=== PATIENT | female | born 1995 | race Caucasian/White ===

== ENCOUNTER 2020-08-01 01:12 | Outpatient (REF) | payer OTHER, SELFPAY ==
[2020-08-01 01:52] LABS: SARS COV2 PCR INHOUSE NEGATIVE (Negative)
== END 2020-08-01 01:13 | disposition home or self-care (01) ==
LOC: HO.LAB 01:12
PROVIDERS: Visit Provider Internal Medicine
DX: Z20.828 Contact with and (suspected) exposure to other viral communicable diseases (principal)
CPT/HCPCS: U0003

== ENCOUNTER 2020-10-20 15:12 | Outpatient (REF) | payer OTHER, SELFPAY ==
[2020-10-20 15:56] LABS: COVID-19 Test Negative (Negative); IDNOW Serial# 55D5AD1C
== END 2020-10-20 15:13 | disposition home or self-care (01) ==
LOC: HO.LAB 15:12
PROVIDERS: Visit Provider Internal Medicine
DX: Z20.822 Contact with and (suspected) exposure to COVID-19 (principal)
CPT/HCPCS: 36415; 87635; C9803

== ENCOUNTER 2020-10-22 16:20 | Outpatient (REF) | payer OTHER, SELFPAY ==
[2020-10-22 18:48] LABS: COVID-19 Test Negative (Negative)
== END 2020-10-22 16:21 | disposition home or self-care (01) ==
LOC: HO.EMPCOV 16:20
PROVIDERS: Visit Provider Internal Medicine
DX: Z20.822 Contact with and (suspected) exposure to COVID-19 (principal)
CPT/HCPCS: 36415; 87635

== ENCOUNTER 2020-11-11 12:00 | Outpatient (REF) | payer OTHER, SELFPAY ==
[2020-11-12 03:43] LABS: Syphilis Screen Nonreactive (Nonreactive)
[2020-11-12 03:55] LABS: HBsAGNum1 0.19 S/CO (0.00-0.99); Hepatitis B Surface Antigen Negative (Negative)
[2020-11-12 04:09] LABS: HBS Num1 1.75 mIU/mL (0-7.99); HBc Num1 0.12 S/CO (0.00-0.79); HIV AB/AG Nonreactive (Nonreactive); HIV Num 1 0.09 S/CO (0.00-0.99); Hepatitis B Core Antibody Nonreactive (Nonreactive); ~Hepatitis B Surface Antibody NONREACTIVE (Nonreactive); ~Hepatitis C Antibody Nonreactive (Nonreactive)
[2020-11-12 14:11] LABS: C. trachomatis RNA TMA NOT DETECTED (NOT DETECTED); N. gonorrhoeae RNA TMA NOT DETECTED (NOT DETECTED)
[2020-11-16 16:42] LABS: HSV 1 IgM IFA Negative (Negative); HSV 2 IgM IFA Negative (Negative)
== END 2020-11-11 12:01 | disposition home or self-care (01) ==
LOC: HO.WFDLDS 12:00
PROVIDERS: Visit Provider Family Medicine
DX: Z11.4 Encounter for screening for human immunodeficiency virus [HIV] (principal); Z11.3 Encounter for screening for infections with a predominantly sexual mode of transmission; Z01.84 Encounter for antibody response examination
CPT/HCPCS: 36415; 86695; 86696; 86704; 86706; 86780; 86803; 87340; 87389; 87491; 87591

== ENCOUNTER 2021-05-09 09:14 | Outpatient (REF) | payer OTHER, SELFPAY ==
[2021-05-09 10:06] LABS: Glucose Urine UA NEG (NEG); Leukocyte Esterase Urine TRACE (NEG); UACC Culture Trigger YES; Urine Blood 2+ (NEG); Urine Ketones 5 MG/DL (NEG); Urine Protein 2+ MG/DL (NEG-TRACE)
[2021-05-09 10:08] LABS: Appearance Urine CLOUDY; Color Urine DARK YELLOW
[2021-05-09 10:33] LABS: RBC Urine 0-2 /HPF (0); WBC Urine 30-49 /HPF (0-4)
[2021-05-09 10:34] LABS: Amorphous Sediment Urine TRACE /LPF; Bacteria Urine 1+ /LPF; Mucus Urine TRACE /LPF; Squamous Epithelial Cell Urine 1+ /LPF
== END 2021-05-09 09:15 | disposition home or self-care (01) ==
LOC: HO.LAB 09:14
PROVIDERS: PCP Family Medicine; Visit Provider Nurse Practitioner Family
DX: R30.0 Dysuria (principal)
CPT/HCPCS: 81001; 87086; 87088; 87186

== ENCOUNTER 2021-09-22 00:14 | Outpatient (REF) | payer OTHER, SELFPAY ==
[2021-09-22 00:41] LABS: COVID-19 Test Negative (Negative)
== END 2021-09-22 00:15 | disposition home or self-care (01) ==
LOC: HO.LAB 00:14
PROVIDERS: Visit Provider Internal Medicine
DX: Z20.822 Contact with and (suspected) exposure to COVID-19 (principal)
CPT/HCPCS: 36415; 87635

== ENCOUNTER 2021-09-27 19:22 | Outpatient (REF) | payer OTHER, SELFPAY ==
[2021-09-27 20:08] LABS: Influenza A PCR NEGATIVE (Negative); Influenza B PCR NEGATIVE (Negative); Resp Syncy Virus RNA Qual PCR NEGATIVE (Negative); SARS COV2 PCR INHOUSE NEGATIVE (Negative)
== END 2021-09-27 19:23 | disposition home or self-care (01) ==
LOC: HO.LNP 19:22
PROVIDERS: Visit Provider Family Medicine
DX: Z20.822 Contact with and (suspected) exposure to COVID-19 (principal); B34.9 Viral infection, unspecified
CPT/HCPCS: 0241U

== ENCOUNTER 2022-03-29 09:14 | Outpatient (REF) | payer OTHER, SELFPAY ==
[2022-03-29 11:30] LABS: Hematocrit 40.4 % (37.0-47.0); Hemoglobin 13.7 g/dl (12.0-16.0); Mean Corpuscular HGB Conc 33.9 g/dl (31.0-35.0); Mean Corpuscular Hemoglobin 32.1 pg (27.0-33.0); Mean Corpuscular Volume 94.6 fL (80.0-98.0); Mean Platelet Volume 12.2 fL (9.4-12.3); Platelet Count 179 X10*3/uL (160-400); Red Blood Count 4.27 X10*6/uL (4.20-5.50); Red Cell Distribution Width 11.7 % (11.0-16.0)
[2022-03-29 11:32] LABS: Alanine Aminotransferase 9 U/L (0-31); Albumin Level 4.6 g/dL (3.5-5.0); Alkaline Phosphatase 73 U/L (39-117); Anion Gap 14 (12-20); Aspartate Amino Transferase 13 U/L (5-31); Bilirubin Total 0.7 mg/dL (0.0-1.0); Blood Urea Nitrogen 11 mg/dL (9-16); Calcium 9.3 mg/dL (8.4-10.2); Carbon Dioxide 25 mmol/L (22-29); Chloride 106 mmol/L (96-108); Cholesterol 167 mg/dL; Estimated Glomerular Filt Rate > 60; Glucose Fasting 88 mg/dL (60-99); HDL Cholesterol 47 mg/dL; LDL Cholesterol Calculated 106 mg/dl; Potassium 3.8 mmol/L (3.3-5.1); Sodium 141 mmol/L (135-145); Total Protein 7.6 g/dL (6.5-8.0); Triglycerides 70 mg/dL
[2022-03-29 11:54] LABS: TSH reflex Free T4 1.85 uIU/mL (0.32-4.0)
[2022-03-29 12:02] LABS: Estimated Average Glucose 97 mg/dL
== END 2022-03-29 09:15 | disposition home or self-care (01) ==
LOC: HO.WFDLDS 09:14
PROVIDERS: Family Medicine; Visit Provider Hospitalist
DX: Z00.00 Encounter for general adult medical examination without abnormal findings (principal); R73.01 Impaired fasting glucose
CPT/HCPCS: 36415; 80053; 80061; 83036; 84443; 85027

== ENCOUNTER 2022-08-13 16:24 | Emergency (ER) | payer SELFPAY ==
[2022-08-13 16:37] VITALS: PULSE 90; RESP 18; TEMP 36.9; O2SAT 99; BMI 19.7
--- NOTE | 2022-08-13 17:53 | ED.WOUNDLAC ---
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 Tetanus up-to-date. Reports mild paresthesias. Denies numbness, weakness, decreased ROM, fever, crush injury Onset (ago): hour(s) Related Data Home Medications Medication Instructions Recorded Confirmed albuterol sulfate 2.5 mg/3 mL mg inhalation 07/28/20 03/29/22 (0.083 %) solution for nebulization albuterol sulfate 90 mcg/actuation inhalation 07/28/20 03/29/22 aerosol inhaler Previous Rx's Medication Instructions Recorded norelgestromin 150 mcg-e.estradiol 1 patch transdermal QWEEK #9 06/07/21 35 mcg/24 hr weekly transderm patches patch (Xulane) trazodone 50 mg tablet 50 mg PO TID PRN sleep and anxiety 03/30/22 #90 tabs Allergies Allergy/AdvReac Type Severity Reaction Status Date / Time penicillin G Allergy Mild rash Verified 03/29/22 08:32 Penicillins [PCN] Allergy Mild RASH Verified 03/29/22 08:32 Review of Systems Review of Systems: Constitutional: No Fever, No Chills ENT/Mouth: No Ear Pain, No Nasal Congestion, No sore throat, No Rhinorrhea, No Swallowing Difficulty Cardiovascular: No Chest Pain, No SOB Respiratory: No Cough, No Sputum, No Wheezing Gastrointestinal: No Nausea, No Vomiting, No Diarrhea, No Constipation, No Abdominal pain Genitourinary: No Dysuria, No Urinary Frequency, No Hematuria, No Flank Pain Musculoskeletal: No joint pain, No Myalgias, No Joint Swelling Skin: + Skin Lesions, No rash Neuro: No Weakness, No Numbness, + Paresthesias Yes all other systems are reviewed and are negative Constitutional: Constitutional: Reports as per HPI Neurologic: Denies Sensory deficit (Neuro) [facility] Past Medical History Attestation statement: The following information was validated with the patient. Surgical History No pertinent past surgical history Family History Family History Father Medical history unknown Mother H/O thyroidectomy Social History Social History Housing: Apartment Patient Tobacco Use Status: Never used Tobacco e-Cigarette/Vaping Use: Never Used Second Hand Smoke Exposure: No Advance Directives: No Advance Directives Information Provided: No service: No Current occupational status: employed Current occupation: [employer] [place] Cognitive needs: No Hearing needs: No Vision needs: No Physical Exam Vital Signs: Vital Signs: Last Vital Signs Temp 98.4 F 08/13/22 16:37 Pulse 90 08/13/22 16:37 Resp 18 08/13/22 16:37 Pulse Ox 99 08/13/22 16:37 O2 Del Method 08/13/22 16:37 BMI result Body Mass Index 19.7 Const: General: cooperative, healthy appearing and no acute distress Orientation/consciousness: patient oriented x3 Limitations: no limitations HEENT: Head: Yes normal to inspection and Yes atraumatic Ears: hearing grossly normal bilaterally General nose exam: Normal external nose present Face and sinus: Yes normal facial exam Eyes: General: appearance normal, both eyes and all related structures EOM: EOMs intact bilaterally Neck: Neck: Yes normal visual inspection and Yes no meningeal signs Resp: Effort & Inspection: normal respiratory effort and no respiratory distress Cardio: Rate: regular rate Heart sounds: S1 normal heart sound present and S2 normal heart sound present Peripheral pulses: radial pulses present and ulnar radial pulses present Skin: Other: +3.5 deep irregular laceration noted to palmar aspect of right index finger between MCP and PIP. Subcu tissue visible. No underlying structures visible. Sensation intact to light touch. Full range of motion intact to digit. [id number] opposition intact Rashes: no rashes Neuro: General: patient oriented x3, tone normal and no meningeal signs Gait exam (Neuro): Normal gait present Sensory Exam: No Sensory deficit (Neuro) Extrem: General: Yes normal to inspection Medications Administered Discontinued Medications Generic Name Dose Route Start Last Admin Trade Name Freq PRN Reason Stop Dose Admin Lidocaine HCl 5 ml 08/13/22 17:59 08/13/22 18:46 Lidocaine Hcl 1 % Mpf 5 Ml Vial INFILTRATI 08/13/22 18:00 5 ml ONCE ONE Administration MDM - Wound/Laceration MDM Narrative Medical decision making narrative: 27-year-old female with no significant past medical history presenting to the ED complaining of laceration to right index finger s/p using 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 On exam vital signs stable, NAD, nontoxic appearing, physical exam as above with 3.5 cm laceration to palmar aspect of right 2nd digit. No evidence of infection. Low suspicion for rupture of underlying structures. Full range of motion intact. Neurovascular intact. Low suspicion for fracture Plan: Repair wound Differential Diagnosis Differential diagnosis: Likely laceration Medical Records Attestation: I reviewed the patient's medical records. Lab Data Attestation: I reviewed the patient's lab results. Procedures Laceration Laceration 1: Site: hand (Index finger) Side (If applicable): right Size (cm): 3.5 Description: irregular Depth: simple, single layer Local Anesthetic: lidocaine 1% Amount of anesthesia used (mL): 3 Pre-repair: wound explored and irrigated extensively Skin layer closed with: nylon Size (cm): 5-0 Number of sutures: 11 Technique: simple, interrupted Discharge Plan Discharge Clinical Impression: Finger laceration Patient Disposition: Home, Self-Care Instructions: Finger Laceration (ED) Additional Instructions: Your wounds were repaired today in the emergency department. Keep dry and clean. You need to return to any emergency department or urgent care in 7-10 days for suture removal Apply bacitracin and or Neosporin daily Once sutures are removed apply anti scar cream like Mederma If area begins look infected, is red, there is drainage, streaking, or you have fever please return to the emergency department Prescriptions: No Action Xulane 150-35 mcg/24 hr patch weekly 1 patch transdermal QWEEK Qty: 9 0RF trazodone 50 mg tablet 50 mg PO TID PRN (Reason: sleep and anxiety) Qty: 90 0RF albuterol sulfate 90 mcg/actuation HFA aerosol inhaler inhalation albuterol sulfate 2.5 mg /3 mL (0.083 %) solution for nebulization inhalation Referrals: Meredith Mantilla, JD [Primary Care Provider] - 1 week (For suture removal)
[2022-08-13] MEDS: Lidocaine HCl 1 % MPF 5 ML VIAL INFILTRATI (18:46)
== END 2022-08-13 19:51 | disposition home or self-care (01) ==
PROVIDERS: Emergency Provider Emergency Medicine; PCP Hospitalist
DX: S61.210A Laceration without foreign body of right index finger without damage to nail, initial encounter (principal); W26.8XXA Contact with other sharp object(s), not elsewhere classified, initial encounter; Y93.9 Activity, unspecified; Y92.009 Unspecified place in unspecified non-institutional (private) residence as the place of occurrence of the external cause; Y99.9 Unspecified external cause status
CPT/HCPCS: 12002; 99282; 99283

== ENCOUNTER 2024-03-12 08:02 | Outpatient (AMB) | payer OTHER, SELFPAY ==
--- NOTE | 2024-03-12 08:12 | MHC.PC.OV ---
Vital Signs 03/12/24 08:13 Height 5 ft 3 in Weight 104 lb BMI 18.4 BP 108/64 Blood Pressure Location Rt brachial Position Sitting Respiration 14 Pulse 77 Pulse Source Pulse Oximeter Temp 97.8 F Temp Source Temporal Artery Scan Pulse Oximetry (%) 99 Oxygen Delivery Method Room Air Intake Visit Reasons: Xfer care Meredith/PE Intake Note: Patient states that she is moving to [place] and is going to work in healthcare and would like labs and is questioning if you can do a swab for yeast infection. Track Helper Required: No Accompanied by: Self / Same As Patient Allergies penicillin G Allergy (Mild, Verified 03/12/24 08:28) rash Penicillins [PCN] Allergy (Mild, Verified 03/12/24 08:28) RASH trazodone Adverse Reaction (Severe, Verified 03/12/24 08:28) Vomiting Medication List - Last Reconciled 03/12/24 by Violet Mendoza, [facility] albuterol sulfate 90 mcg/actuation inhalation Tobacco use date assessed: 03/12/24 Dental Screening Dental Screen Date: 03/12/24 Did you have a dental visit in the last 12 months?: No Did you have a dental problem in the last 6 months where you did not have access to dental care?: No Was dental information given to patient?: Patient has dentist HPI HPI Comments History of Present Illness Details 29 y/o F with acne, passive SI, asthma, MDD, ALYSHA Surgical Hx: R finger lac repair Social: Electronics Mechanic Health Maintenance: Pap overdue Specialists: Derm > did not see, as she was placed on waitlist Here today for CPE Old records and labs reviewed. Will be moving to start new job, as a [employer], to [place], [place] . Needs pre-employment screening. Due for Tdap. Will get today. Eyes - blurred vision, worse in R eye. thinks its from straining. will get eye exam when she moved Derm - referral for gen survellience. She will est care once moved. Nothing concerning at this time. Discussed mood screenings. Has situational anx and depression. not currently on meds. Denies SI, HI, self med. Will f/u with provider in [place]. vaginal discharge w/ odor. Regular periods. no concern for STD. wonders if bv or yeast. no at home tx. BV swab today. [facility] Medical History Screening for STD (sexually transmitted disease) Surgical History No pertinent past surgical history Family History Father Medical history unknown Mother H/O thyroidectomy Other Mental health disorder Substance abuse Social History Housing: Apartment Patient Tobacco Use Status: Never used Tobacco e-Cigarette/Vaping Use: Never Used Second Hand Smoke Exposure: No service: No Current occupational status: employed Current occupation: Electronics Mechanic Cognitive needs: No Hearing needs: No Vision needs: Yes Questionnaire PHQ-9 Over the last 2 weeks, how often have you been bothered by any of the following problems? 1. Little interest or pleasure in doing things: not at all 2. Feeling down, depressed, or hopeless: several days 3. Trouble falling or staying asleep, or sleeping too much: several days 4. Feeling tired or having little energy: several days 5. Poor appetite or overeating: not at all 6. Feeling bad about yourself - or that you are a failure or have let yourself or your family down: several days 7. Trouble concentrating on things, such as reading the newspaper or watching television: not at all 8. Moving or speaking so slowly that other people could have noticed. Or the opposite - being so fidgety or restless that you have been moving around a lot more than usual: not at all 9. Thoughts that you would be better off or of hurting yourself in some way: not at all Total score: 4 Depression Screening Interpretation: Negative Depression Screening Done: Yes 43109 - PHQ-9 Billing: Yes Source: Developed by Drs. Puma Diaz, Georgie Sanabria, Marlon Mullen and colleagues, with an educational keenan from [employer]. Thrive Questionnaire Date Thrive assessed: 03/12/24 I am a: Patient What is your living situation today?: I have a steady place to live Within the past 12 months, did the food you bought not last and you didn't have the money to get more?: Never true Within the past 12 months, did you worry whether your food would run out before you got money to buy more?: Never true Do you have trouble paying for medicines?: No Do you have trouble getting transportation to medical appointments?: No Do you have trouble paying your heating and electricity bill?: No Do you have trouble taking care of your child, family member or friend?: No Do you have trouble with day-to-day activities such as bathing, preparing meals, shopping, managing finances, etc.?: No Are you currently unemployed and looking for a job?: No Are you interested in more education?: No Please select the resources that you would like help with: None Currently or been in a relationship where the following occur: no concerns reported THRIVE Score: 0 AUDIT C Alcohol Use Questionnaire (AUDIT-C) 1. How often do you have a drink containing alcohol?: Monthly or less 2. How many drinks containing alcohol do you have on a typical day when you are drinking?: 1 or 2 3. How often do you have six or more drinks on one occasion?: Never Total Score: 1 Score Reviewed/Action Taken: Yes ALYSHA-7 AMB Questionnaire ALYSHA-7 Date ALYSHA - 7 assessed: 03/12/24 Feeling nervous, anxious, or on edge: 2 = More than half the days Not being able to stop or control worryin = More than half the days Worrying too much about different things: 2 = More than half the days Trouble relaxin = More than half the days Being so restless that it is hard to sit still: 2 = More than half the days Becoming easily annoyed or irritable: 1 = Several days Feeling afraid as if something awful might happen: 1 = Several days Total ALYSHA-7 score (0-4 normal; 5-9 mild; 10-14 moderate; 15-21 severe): 12 Source: Developed by Drs. Puma Diaz, Georgie Sanabria, Marlon Mullen and colleagues, with an educational keenan from [employer]. ALYSHA-7 Assessment Billing ALYSHA-7 Assessment Tool: ALYSHA-7 Assessment 65880 ACT Questionnaire In the past 4 weeks, how much of the time did your asthma keep you from getting as much done at work, school or at home?: A little of the time During the past 4 weeks, how often have you had shortness of breath?: 1-2 times a week During the past 4 weeks, how often did your asthma symptoms wake you up at night or earlier than usual in the morning?: Not at all During the past 4 weeks, how often have you had to use your rescue inhaler or nebulizer medication?: 1-2 times a week How would you rate your asthma control during the past 4 weeks?: Well controlled ACT Interpretation: Negative Score: 19 Review of Systems Const Details: Constitutional: Denies fever. Skin: Denies rash. Eye: Denies eye pain. ENMT: Denies sore throat and nasal congestion. Respiratory: Denies shortness of breath and cough. Gastrointestinal: Denies nausea, vomiting or abdominal pain. Cardiovascular: Denies chest pain and syncope. Genitourinary: Denies dysuria. Musculoskeletal: Denies back pain and extremity pain. Neurologic: Denies headaches, confusion, and weakness. Psychiatric: Denies suicidal thoughts and substance abuse. Allergy/ Immunologic: Denies impaired immunity. Physical exam (Primary Care) Vital Signs: Last Vital Signs Temp 97.8 F 03/12/24 08:13 Pulse 77 03/12/24 08:13 Resp 14 03/12/24 08:13 BP 108/64 03/12/24 08:13 Pulse Ox 99 03/12/24 08:13 Oxygen Delivery Method Room Air 03/12/24 08:13 BMI result Body Mass Index 18.4 BMI Assessment/Plan discussion: Low BMI Low, Plan discussed: lifestyle Tobacco/Smoking Status: Tobacco use Status Tobacco use date assessed 03/12/24 03/12/24 08:24 Patient Tobacco Use Status Never used Tobacco 03/12/24 08:24 e-Cigarette/Vaping Use Never Used 03/12/24 08:24 PHQ-9: PHQ-9 Score PHQ-9: Total score 4 03/12/24 09:05 Depression Screening Interpretation: Negative Thrive Assessment: Date of Thrive Assessment Date Thrive assessed 03/12/24 03/12/24 08:24 Currently or been in a relationship where the following occur: no concerns reported Const Other: General: Well developed, well nourished, in no acute distress. Appears stated age. Head: Normocephalic, atraumatic. Eyes: Pupils are equal, round and reactive to light and accommodation. Conjunctivae are clear. Vision grossly normal. Ears: TMs clear AU, EACS WNL Nose: Patent, without discharge. Mouth: There are no ulcers or lesions noted. No inflammation, no post nasal drip, no plaques nor exudates. Neck: Supple, no adenopathy or thyromegaly. Lungs: Clear to auscultation bilaterally. No rales, rhonchi or wheeze noted. Good air flow in all de leon. Heart: Regular rate and rhythm. No murmurs, click, rubs or gallops are noted. Abdomen: Bowel sounds present in all quadrants. The abdomen is soft, nontender, with no masses or organomegaly noted. No hernias are noted. Musculoskeletal: Joints are nontender, without swelling, redness, or effusions. Range of motion is observed to be normal. Pulses: Peripheral pulses are equal and palpable bilaterally. Extremities: No clubbing, cyanosis nor edema is noted. Neurologic: Gait and station normal. Cranial Nerves 2-12 intact. Motor strength grossly symmetrical and intact. No sensory loss. Balance normal. Skin: No rashes, ulcers, or lesions noted. Turgor is good. Skin color is good. Hair and nails are without abnormalities. Psych: Normal eye contact, affect and mood appropriate, and normal interactions. Patient is alert and appropriate to context. Immunizations Boostrix Tdap 2.5 Lf unit-8 mcg-5 Lf/0.5 mL intramuscular syringe Performing Provider: MALIA Tran Performing Location: [facility] Administered by: BRAN Michaels on 03/12/24 09:07 Dose Route Admin Location Dispensed Lot Number Expiration Date [facility] Floor Molder 0.5 mL IM Left Deltoid 0.5 mL [id number] 05/09/26 [id number] Simple Tithe VIS Given Date VIS Provided VIS Publication Date 03/12/24 Single Vaccine 21 Eligibility Eligibility Date Funding Source Not [facility] Eligible 03/12/24 Private Assessment and Plan Assessment & Plan (1) Encounter for general adult medical examination with abnormal findings: Code(s): Z00.01 - Encounter for general adult medical examination with abnormal findings (2) Vaginal discharge: Code(s): N89.8 - Other specified noninflammatory disorders of vagina (3) Laboratory exam ordered as part of routine general medical examination: Code(s): Z00.00 - Encounter for general adult medical examination without abnormal findings (4) MDD (major depressive disorder), recurrent episode: Comment: no meds at this time, no counseling will work on est care when she moves Code(s): F33.9 - Major depressive disorder, recurrent, unspecified Qualifiers: Major depression episode severity: mild Qualified Code(s): F33.0 - Major depressive disorder, recurrent, mild (5) ALYSHA (generalized anxiety disorder): Comment: no meds at this time, no counseling will work on est care when she moves Code(s): F41.1 - Generalized anxiety disorder (6) Mild intermittent asthma: Comment: on PRN KJ only w/ well controlled sx REfill sent Code(s): J45.20 - Mild intermittent asthma, uncomplicated Qualifiers: Asthma complication type: uncomplicated Qualified Code(s): J45.20 - Mild intermittent asthma, uncomplicated Plan This note is constructed using voice recognition software. While every effort has been made to ensure accuracy in machine operator slitter technician, still errors may have been included Sometimes, these errors may affect the content or meaning of the given sentence . Total time spent caring for the patient today was 50 minutes. An additional 15 was spent addressing the problem(s) noted at todays visit. This includes time spent before the visit reviewing the chart, time spent during the visit, and time spent after the visit on documentation Orders: Orders Comprehensive [place]. Panel Fast Today Z00.00 - Encounter for general adult medical examination without abnormal findings IRON PROFILE Today Z00.00 - Encounter for general adult medical examination without abnormal findings Vitamin B12 and Folate Today Z00.00 - Encounter for general adult medical examination without abnormal findings Bacterial Vaginosis Panel Today N89.8 - Other specified noninflammatory disorders of vagina Hemoglobin A1c Today Z00.00 - Encounter for general adult medical examination without abnormal findings Lipid Panel Today Z00.00 - Encounter for general adult medical examination without abnormal findings Microalbumin, Random (w Creat) Today Z00.00 - Encounter for general adult medical examination without abnormal findings TSH reflex Free T4 Today Z00.00 - Encounter for general adult medical examination without abnormal findings Vitamin D 1,25 dihydroxy Today Z00.00 - Encounter for general adult medical examination without abnormal findings Hepatitis B Surface Antibody Today Z00.00 - Encounter for general adult medical examination without abnormal findings MMR IgG Measles Mumps Rubella Today Z00.00 - Encounter for general adult medical examination without abnormal findings T Spot TB Today Z00.00 - Encounter for general adult medical examination without abnormal findings Varicella IgG Antibody Today Z00.00 - Encounter for general adult medical examination without abnormal findings Complete Blood Count no Diff Today Z00.00 - Encounter for general adult medical examination without abnormal findings TDaP Immunization Today Z23 - Encounter for immunization Medications: Changed From albuterol sulfate 90 mcg/actuation inhalation To albuterol sulfate 90 mcg/actuation 2 puffs inhalation Q6H 8.5 grams 1RF Patient Instructions: Health screenings for women You should visit your health care provider from time to time, even if you are healthy. The purpose of these visits is to: Screen for medical issues Assess your risk for future medical problems Encourage a healthy lifestyle Update vaccinations and other preventive care services Help you get to know your provider in case of an illness Information Even if you feel fine, you should still see your provider for regular checkups. These visits can help you avoid problems in the future. For example, the only way to find out if you have high blood pressure is to have it checked regularly. High blood sugar and high cholesterol levels also may not have any symptoms in the early stages. A simple blood test can check for these conditions. There are specific times when you should see your provider or receive specific health screenings. The [place] Preventive Services Task Force publishes a list of recommended screenings. Below are screening guidelines for women ages 18 to 39. BLOOD PRESSURE SCREENING Your blood pressure should be checked at least once every 3 to 5 years if: Your blood pressure is in the normal range (top number less than 120 mm Hg and bottom number less than 80 mm Hg) You don't have risk factors for high blood pressure Ask your provider if you need your blood pressure checked more often if: The top number is 120 to 129 mm Hg or the bottom number is 70 to 79 mm Hg You have diabetes, heart disease, kidney problems, are overweight, or have certain other health conditions You have a first-degree relative with high blood pressure You are Black You had high blood pressure during a If the top number is 130 mm Hg or greater or the bottom number is 80 mm Hg or greater, this is considered stage 1 hypertension. Schedule an appointment with your provider to learn how you can reduce your blood pressure. Watch for blood pressure screenings in your area. Ask your provider if you can stop in to have your blood pressure checked. BREAST CANCER SCREENING Experts do not agree about the benefits of breast self-exams in finding breast cancer or saving lives. Talk to your provider about what is best for you. A screening mammogram is not recommended for most women under age 40. Your provider may discuss and recommend mammograms, MRI scans, or ultrasounds if you have an increased risk for breast cancer, such as: A mother or sister who had breast cancer at a young age (most often starting screening earlier than the age the close relative was diagnosed) You carry a high-risk genetic marker CERVICAL CANCER SCREENING Cervical cancer screening should start at age 21 years unless your provider advises otherwise. After the first test: Women ages 21 through 29 should have a Pap test every 3 years. Exoprts do not agree on whether HPV testing is recommended for this age group. Women ages 30 through 65 should be screened with either a Pap test every 3 years or the HPV test every 5 years or both tests every 5 years (called cotesting ). Women who have been treated for precancer (cervical dysplasia) should continue to have Pap tests for 20 years after treatment or until age 65, whichever is longer. If you have had your uterus and cervix removed (total hysterectomy), and you have not been diagnosed with cervical cancer or precancer (high grade cervical neoplasia), you do not need cervical cancer screening. CHOLESTEROL SCREENING Cholesterol screening should begin at: Age 45 for women with no known risk factors for coronary heart disease Age 20 for women with known risk factors for coronary heart disease Repeat cholesterol screening should take place: Every 5 years for women with normal cholesterol levels More often if changes occur in lifestyle (including weight gain and diet) More often if you have diabetes, heart disease, kidney problems, or certain other conditions DIABETES SCREENING You should be screened for diabetes starting at age 35 and then repeated every 3 years if you have no risk factors for diabetes. Screening may need to start earlier and be repeated more often if you have other risk factors for diabetes, such as: You have a first degree relative with diabetes. You are overweight or have obesity. You have high blood pressure, prediabetes, or a history of heart disease. Screening for diabetes should be done if you are planning to become and you are overweight and have other risk factors such as high blood pressure. DENTAL EXAM Go to the dentist once or twice every year for an exam and cleaning. Your dentist will evaluate if you need more frequent visits. EYE EXAM Have an eye exam every 5 to 10 years before age 40. If you have vision problems, have an eye exam every 2 years or more often if recommended by your provider. You should have an eye exam that includes an examination of your retina (back of your eye) at least every year if you have diabetes. IMMUNIZATIONS Commonly needed vaccines include: Flu shot: get one every year. COVID-19 vaccine: ask your provider what is best for you. Tetanus-diphtheria and acellular pertussis (Tdap) vaccine: have one at or after age 19 as one of your tetanus-diphtheria vaccines if you did not receive it as an adolescent. Tetanus-diphtheria: have a booster (or Tdap) every 10 years. Varicella vaccine: receive 2 doses if you never had chickenpox or the varicella vaccine. Hepatitis B vaccine: receive 2, 3, or 4 doses, depending on your exact circumstances. Measles, mumps, and rubella (MMR) vaccine: receive 1 to 2 doses if you are not already immune to MMR. Your provider can tell you if you are immune. Ask your provider about the human papillomavirus (HPV) vaccine if: You have not received the HPV vaccine in the past You have not completed the full vaccine series (you should catch up on this shot) Ask your provider if you should receive other immunizations if you have certain health problems that increase your risk for some diseases such as pneumonia. INFECTIOUS DISEASE SCREENING Women who are sexually active should be screened for chlamydia and gonorrhea up until age 25. Women 25 years and older should be screened for chlamydia and gonorrhea if at high risk. Screening for hepatitis C: All adults ages 18 to 79 should get a one-time test for hepatitis C. people should be screened at every . Screening for human immunodeficiency virus (HIV): All people ages 15 to 65 should get a one-time test for HIV. Depending on your lifestyle and medical history, you may also need to be screened for infections such as syphilis and HIV, as well as other infections. PHYSICAL EXAM All adults should visit their provider from time to time, even if they are healthy. The purpose of these visits is to: Screen for disease Assess your risk of future medical problems Encourage a healthy lifestyle Update your vaccinations and other preventive care services Maintain a relationship with a provider in case of an illness Your height, weight, and BMI should be checked at every exam. During your exam, your provider may ask you about: Depression and anxiety Diet and exercise Alcohol and tobacco use Safety issues, such as using seat belts, smoke detectors, and intimate partner violence Your medicines and risk for interactions SKIN SELF-EXAM Your provider may check your skin for signs of skin cancer, especially if you're at high risk, such as if you: Have had skin cancer before Have close relatives with skin cancer Have a weakened immune system OTHER SCREENING Talk with your provider about colon cancer screening if you have a strong family history of colon cancer or polyps, or if you have had inflammatory bowel disease or polyps yourself. Routine bone density screening of women under 40 is not recommended. Coding Level of Care Code Est Pt Level 2 (10449) Est Pt Prev Care 18-39y(65681) Diagnoses Encounter for general adult medical examination with abnormal findings Z00.01 Vaginal discharge N89.8 Laboratory exam ordered as part of routine general medical examination Z00.00 Mild episode of recurrent major depressive disorder F33.0 Major depression episode severity: mild ALYSHA (generalized anxiety disorder) F41.1 Mild intermittent asthma without complication J45.20 Asthma complication type: uncomplicated Additional Codes ALYSHA-7 Assessment Billing - ALYSHA-7 Assessment Tool: ALYSHA-7 Assessment [id number] ([id number])
[2024-03-12 08:13] VITALS: BP 108/64; PULSE 77; RESP 14; TEMP 36.6; O2SAT 99; BMI 18.4
== END 2024-03-12 09:19 | disposition home or self-care (01) ==
PROVIDERS: PCP Nurse Practitioner Family; Visit Provider Nurse Practitioner Family
DX: Z00.01 Encounter for general adult medical examination with abnormal findings (principal); F33.0 Major depressive disorder, recurrent, mild; N89.8 Other specified noninflammatory disorders of vagina; Z23 Encounter for immunization; F41.1 Generalized anxiety disorder; J45.20 Mild intermittent asthma, uncomplicated
CPT/HCPCS: 90471; 90715; 99212; 99395

== ENCOUNTER 2024-03-12 09:05 | Outpatient (REF) | payer OTHER, SELFPAY ==
[2024-03-12 11:41] LABS: Hematocrit 37.7 % (37.0-47.0); Hemoglobin 12.9 g/dl (12.0-16.0); Mean Corpuscular HGB Conc 34.2 g/dl (31.0-35.0); Mean Corpuscular Hemoglobin 32.9 pg (27.0-33.0); Mean Corpuscular Volume 96.2 fL (80.0-98.0); Mean Platelet Volume 12.2 fL (9.4-12.3); Platelet Count 156 X10*3/uL (160-400); Red Blood Count 3.92 X10*6/uL (4.20-5.50); Red Cell Distribution Width 11.6 % (11.0-16.0); White Blood Count 6.7 X10*3/uL (4.8-10.8)
[2024-03-12 11:54] LABS: Estimated Average Glucose 100 mg/dL; Hemoglobin A1c % 5.1 % (<6.0)
[2024-03-12 12:10] LABS: Alanine Aminotransferase 9 U/L (0-31); Albumin Level 4.1 g/dL (3.5-5.0); Alkaline Phosphatase 63 U/L (39-117); Anion Gap 10 (12-20); Aspartate Amino Transferase 12 U/L (5-31); Bilirubin Total 0.3 mg/dL (0.0-1.0); Blood Urea Nitrogen 14 mg/dL (9-16); Calcium 9.1 mg/dL (8.4-10.2); Carbon Dioxide 26 mmol/L (22-29); Chloride 108 mmol/L (96-108); Cholesterol 128 mg/dL (<200); Estimated Glomerular Filt Rate > 60; Glucose Fasting 86 mg/dL (60-99); HDL Cholesterol 42 mg/dL (>40); Iron 48 mcg/dL (30-160); LDL Cholesterol Calculated 78 mg/dL (<100); Percent Iron Saturation 19 % (15-50); Potassium 3.8 mmol/L (3.3-5.1); Sodium 140 mmol/L (135-145); Total Iron Binding Capacity 249 mcg/dL (228-428); Triglycerides 40 mg/dL (<150); Unsaturated Iron Binding 201 ug/dL
[2024-03-12 12:11] LABS: ~Hepatitis B Surface Antibody NONREACTIVE (Nonreactive)
[2024-03-12 12:12] LABS: TSH reflex Free T4 1.18 uIU/mL (0.32-4.0)
[2024-03-12 12:23] LABS: Creatinine Urine 108.03 mg/dL; Microalbum/Creatinine Ratio Ur 5.5 ug/mg cr (<30)
[2024-03-12 12:29] LABS: Folate 6.6 ng/mL (> or = 4.0); Vitamin B12 861 pg/mL (200-900)
[2024-03-14 03:57] LABS: Mumps Virus IgG Antibody <9.00 AU/mL; Rubella IgG Antibody 4.92 Index; Varicella IgG Antibody <135.00 index
[2024-03-15 10:13] LABS: TS Negative Control Passed; TS Panel A 1; TS Panel B 1; TS Positive Control Passed; TSpotTB Negative (Negative)
[2024-03-17 09:18] LABS: VITAMIN D (1,25 OH) D3 60 pg/mL; Vit D (1,25-Dihydroxy) Total 60 pg/mL (18-72); Vitamin D (1,25 OH) D2 <8 pg/mL
== END 2024-03-12 09:06 | disposition home or self-care (01) ==
LOC: HO.WFDLDS 09:05
PROVIDERS: Visit Provider Nurse Practitioner Family
DX: Z00.00 Encounter for general adult medical examination without abnormal findings (principal)
CPT/HCPCS: 36415; 80053; 80061; 82043; 82570; 82607; 82652; 82746; 83036; 83540; 84443; 85027; 86481; 86706; 86735; 86762; 86765; 86787

== ENCOUNTER 2024-03-12 11:25 | Outpatient (REF) | payer OTHER, SELFPAY ==
[2024-03-12 16:14] LABS: Bacterial Vaginosis PCR POSITIVE (Negative); Candida Group PCR NOT DETECTED (Not Detect); Candida glab krusei PCR NOT DETECTED (Not Detect); Trichomonas vaginalis PCR NOT DETECTED (Not Detect)
== END 2024-03-12 11:26 | disposition home or self-care (01) ==
LOC: HO.LAB 11:25
PROVIDERS: Visit Provider Nurse Practitioner Family
DX: N89.8 Other specified noninflammatory disorders of vagina (principal)
CPT/HCPCS: 0352U

== ENCOUNTER 2024-04-23 12:09 | Outpatient (AMB) | payer OTHER, SELFPAY ==
--- NOTE | 2024-04-23 12:06 | MHC.PC.OV ---
Intake Visit Reasons: Rsch from 04/18 Director Of Marketing And Promotions Required: No Is last menstrual period known: Yes Last menstrual period: 04/09/24 Post menopausal: No Patient : No Allergies penicillin G Allergy (Mild, Verified 04/23/24 12:07) rash Penicillins [PCN] Allergy (Mild, Verified 04/23/24 12:07) RASH trazodone Adverse Reaction (Severe, Verified 04/23/24 12:07) Vomiting Medication List - Last Reconciled 04/23/24 by Violet Mendoza, [facility] albuterol sulfate 90 mcg/actuation 2 puffs inhalation Q6H metronidazole 0.75%(37.5mg/5gram) 1 appful vaginal DAILY 5 days Tobacco use date assessed: 03/12/24 Dental Screening Dental Screen Date: 03/12/24 HPI HPI Comments History of Present Illness Details 29 y/o F with acne, passive SI, asthma, MDD, ALYSHA Telehealth visit today for complaints of anxiety and recurrent bacterial vaginosis. Reports that she recently moved to [place] for work, she is living alone, does not have a lot of local support. While she is supported by friends and family via telephone, she is having intermittent anxiety. She denies any depression. In fact she admits generally she is doing really great. However she has these episodes that occur about 2-3 times per week where she rocks back and forth for up to 5 hours, lays on the couch and worries about the future and her family. The worry and anxiety affects her sleep. She was on sertraline in the past and does not want to be on something daily but is open to taking something as needed. In regards to the bacterial vaginosis she was treated at the last office visit with Metrogel. All of her symptoms resolved until a few days ago. Reports the same symptoms of malodorous vaginal discharge. She has not been able to establish care with a provider at this time, she is actively working on it. Plan Metrogel vaginally prescribed Start p.r.n. hydroxyzine, she can use 12.5 mg to 50 mg 3 times a day as needed for anxiety. Continue to work establishing care with a primary care. This note is constructed using voice recognition software. While every effort has been made to ensure accuracy in breaker mechanic, still errors may have been included Sometimes, these errors may affect the content or meaning of the given sentence . Total time spent caring for the patient today was 12 minutes. This includes time spent before the visit reviewing the chart, time spent during the visit, and time spent after the visit on documentation [facility] Medical History Screening for STD (sexually transmitted disease) Surgical History No pertinent past surgical history Family History Father Medical history unknown Mother H/O thyroidectomy Other Mental health disorder Substance abuse Social History Housing: Apartment Patient Tobacco Use Status: Never used Tobacco e-Cigarette/Vaping Use: Never Used Second Hand Smoke Exposure: No Patient : No service: No Current occupational status: employed Current occupation: Graduate Fellow Cognitive needs: No Hearing needs: No Vision needs: Yes Female Reproductive History Menstrual Date of last menstrual period: 04/09/24 Questionnaire Thrive Questionnaire Date Thrive assessed: 03/12/24 ALYSHA-7 AMB Questionnaire ALYSHA-7 Date ALYHSA - 7 assessed: 03/12/24 Source: Developed by Drs. Puma Diaz, Georgie Sanabria, Marlon Mullen and colleagues, with an educational keenan from [employer]. Physical exam (Primary Care) Tobacco/Smoking Status: Tobacco use Status Tobacco use date assessed 03/12/24 04/23/24 12:08 Patient Tobacco Use Status Never used Tobacco 04/23/24 12:08 e-Cigarette/Vaping Use Never Used 04/23/24 12:08 Thrive Assessment: Date of Thrive Assessment Date Thrive assessed 03/12/24 04/23/24 12:08 Telehealth Telehealth Telehealth Platform: Telephone Location of provider rendering services: practice address Location of patient: address on file Patient Identification confirmed using: Name, : Yes Telehealth method: voice only Patient verbally consented to treatment: Yes Patient verbally consented to billing insurance company: Yes Patient informed of any privacy concerns related to visit: Yes Minutes spent on Phone/Video with Pt.: 12 Assessment and Plan Assessment & Plan (1) ALYSHA (generalized anxiety disorder): Code(s): F41.1 - Generalized anxiety disorder (2) Bacterial vaginosis: Code(s): N76.0 - Acute vaginitis; B96.89 - Other specified bacterial agents as the cause of diseases classified elsewhere Medications: New hydroxyzine HCl 1-2 tabs as needed 3x/day prn anxiety 25 mg PO TID PRN 90 tabs 1RF anxiety Refilled metronidazole 0.75%(37.5mg/5gram) 1 appful vaginal DAILY 70 grams 2RF 5 days Coding Level of Care Code Tele Est Pt Level 2 (37195) Diagnoses ALYSHA (generalized anxiety disorder) F41.1 Bacterial vaginosis N76.0; B96.89
== END 2024-04-23 12:19 | disposition home or self-care (01) ==
LOC: HO.HMGFM 12:09
PROVIDERS: PCP Nurse Practitioner Family; Visit Provider Nurse Practitioner Family
DX: F41.1 Generalized anxiety disorder (principal); N76.0 Acute vaginitis; B96.89 Other specified bacterial agents as the cause of diseases classified elsewhere
CPT/HCPCS: 99212